=== PATIENT | female | born 1960 | race African-American/Black ===

== ENCOUNTER 2023-07-07 05:05 | Day surgery (SDC) | payer OTHER ==
[2023-07-04 14:00] VITALS: BMI 28.1
[2023-07-07 10:48] VITALS: TEMP 98
[2023-07-07 11:15] VITALS: BP 130/69; PULSE 72; RESP 18
== END 2023-07-07 11:25 | disposition home or self-care (01) ==
LOC: JASU-ENDO 05:05
PROVIDERS: ATTEND Internal Medicine Gastroenterology
PROC: 0DJD8ZZ Inspection of Lower Intestinal Tract, Via Natural or Artificial Opening Endoscopic (ICD-10-PCS; principal; 2023-07-07 10:30)
DX: Z12.11 Encounter for screening for malignant neoplasm of colon (principal); I10 Essential (primary) hypertension